=== PATIENT | female | born 1990 | race African-American/Black ===

== ENCOUNTER 2018-11-19 12:21 | Emergency (ER) | payer OTHER ==
[~2018-11-19] VITALS: Ht 167.6 cm; Wt 58.2 kg
[2018-11-19 12:23] VITALS: BP 120/69
--- NOTE | 2018-11-19 12:47 | NUR ---
REGIONAL BUSINESS DEVELOPMENT MANAGER: CALLED FOR ROOM, NO ANSWER
--- NOTE | 2018-11-19 12:58 | NUR ---
DIRECTOR WHOLESALE: CALLED FOR ROOM, NO ANSWER
[2018-11-19] MEDS ORDERED: ASPIRIN 81 MG TABLET CHEW PO ONE (13:00)
--- NOTE | 2018-11-19 13:09 | NUR ---
DIRECT SUPPORT PROFESSIONAL: CALLED FOR ROOM, NO ANSWER
== END 2018-11-19 13:14 | disposition left against medical advice (07) ==
LOC: ED 13:08
DX: R07.89 Other chest pain (principal)
CPT/HCPCS: 93005; 99283

== ENCOUNTER 2019-05-26 10:03 | Emergency (ER) | payer OTHER ==
[~2019-05-26] VITALS: Ht 167.6 cm; Wt 59.5 kg
--- NOTE | 2019-05-26 10:48 | NUR ---
PT TO ULTRASOUND
[2019-05-26 10:55] LABS: BASOPHILS # (AUTO) 0.03 x10^3/uL (0-0.1); BASOPHILS % (AUTO) 1 % (0-1); EOSINOPHILS # (AUTO) 0.05 x10^3/uL (0-0.4); EOSINOPHILS % (AUTO) 1 % (1-7); LYMPHOCYTES # (AUTO) 1.07 x10^3/uL (1-3.4); LYMPHOCYTES % (AUTO) 16 % (22-44); MD NO; MEAN CORPUSCULAR HEMOGLOBIN 29.2 pg (27.0-34.8); MEAN CORPUSCULAR HGB CONC 33.1 g/dL (32.4-35.8); MEAN CORPUSCULAR VOLUME 88.4 fL (80-100); MEAN PLATELET VOLUME 8.8 fL (7.4-10.4); MONOCYTES # (AUTO) 0.35 x10^3/uL (0.2-0.8); MONOCYTES % (AUTO) 5 % (2-9); NEUTROPHILS % (AUTO) 77 % (42-75); PLATELET COUNT 247 x10^3/uL (130-400); RED BLOOD COUNT 4.14 x10^6/uL (3.82-5.3); RED CELL DISTRIBUTION WIDTH 13.4 % (9.6-15.2)
[2019-05-26 11:06] LABS: ALBUMIN 3.1 g/dL (3.4-5.0); ANION GAP 7 mmol/L (5-15); CALCIUM 8.6 mg/dL (8.5-10.1); CHLORIDE 110 mmol/L (98-107)
[2019-05-26 11:08] LABS: CREATININE 0.55 mg/dL (0.55-1.02)
[2019-05-26] MEDS ORDERED: KETOROLAC 30 MG/1 ML ONE (12:15)
[2019-05-26] MEDS ORDERED: HYDROmorphone 1 MG/ML, 1ML INJ ONE (12:15)
--- NOTE | 2019-05-26 12:17 | NUR ---
BACK FROM US, MEDICATED ORDERED
[2019-05-26] MEDS ORDERED: HYDROmorphone 1 MG/ML, 1ML INJ IM ONE (12:30)
[2019-05-26] MEDS ORDERED: KETOROLAC 30 MG/1 ML IM ONE (12:30)
[2019-05-26 13:00] VITALS: BP 108/75
[2019-05-26] MEDS ORDERED: DOXYCYCLINE 100MG TABLET ONE (13:17)
[2019-05-26] MEDS ORDERED: OXYcodone/APAP 10/325MG TABLET ONE (13:20)
[2019-05-26 13:30] LABS: CLUE CELLS NONE SEEN (NONE SEEN); WET PREP WBCS MODERATE (FEW)
[2019-05-26] MEDS ORDERED: DOXYCYCLINE 100MG TABLET PO ONE (13:30)
[2019-05-26] MEDS ORDERED: OXYcodone/APAP 10/325MG TABLET PO ONE (13:30)
--- NOTE | 2019-05-26 13:45 | NUR ---
ERMD AT BEDSIDE TO DISCUSS POC
[2019-05-26] MEDS ORDERED: CEFTRIAXONE 250 MG IM ONE (14:00)
[2019-05-26] MEDS ORDERED: CEFTRIAXONE 250 MG ONE (14:01)
== END 2019-05-26 14:05 | disposition home or self-care (01) ==
LOC: ED 12:06
DX: A59.01 Trichomonal vulvovaginitis (principal)
CPT/HCPCS: 36415; 76830; 80048; 82040; 85025; 87210; 87491; 87591; 87808; 96372; 99284; J0696; J1170; J1885